=== PATIENT | male | born 1935 | race Asian ===

== ENCOUNTER 2021-08-09 22:37 | Emergency (ER) | payer MEDICARE ==
[~2021-08-09] VITALS: Ht 157.5 cm; Wt 49.9 kg
[2021-08-09 23:01] LABS: BASOPHILS % 0.2 % (0.0-1.0); EOSINOPHILS % 0.2 % (0.0-6.0); LYMPHOCYTES # (AUTO) 0.5 (1.0-3.2); LYMPHOCYTES % 3.8 % (18.0-39.1); MEAN CORPUSCULAR HEMOGLOBIN 22.5 pg (28-32); MEAN CORPUSCULAR HGB CONC 29.5 g/dL (31-35); MEAN CORPUSCULAR VOLUME 76.3 fL (81-99); MONOCYTES # (AUTO) 0.7 (0.2-0.8); MONOCYTES % 5.4 % (4.4-11.3); NEUTROPHILS % 89.3 % (38.7-80.0); PLATELET COUNT 291 x10e3/uL (140-360); RED BLOOD COUNT 2.53 x10e6/uL (4.3-5.7)
[2021-08-09 23:03] LABS: HEMATOCRIT 19.3 % (38.2-49.6); HEMOGLOBIN 5.7 g/dL (14.0-18.0)
[2021-08-09 23:14] LABS: INR 1.04; PROTHROMBIN TIME 14.3 seconds (11.9-14.5)
[2021-08-09 23:15] LABS: PARTIAL THROMBOPLASTIN TIME 36.5 seconds (23.8-35.5)
[2021-08-09 23:20] LABS: ANION GAP 13.2 mmol/L (8-16); CALCIUM 8.2 mg/dL (8.4-10.2); CREATININE, SERUM 1.27 mg/dL (0.72-1.25); POTASSIUM 4.2 mmol/L (3.5-5.1)
[2021-08-09] MEDS ORDERED: SODIUM CHLORIDE 0.9% 250ML 250 ML IV ONE (23:30)
[2021-08-10] MEDS ORDERED: SODIUM CHLORIDE 0.9% 250ML 250 ML ONE (17:13)
== END 2021-08-10 23:53 | disposition home or self-care (01) ==
LOC: ER 22:48
DX: D50.9 Iron deficiency anemia, unspecified (principal); R50.9 Fever, unspecified
CPT/HCPCS: 36415; 80048; 85025; 85610; 85730; 86850; 86870; 86880; 86900; 86905; 86920; 86922; 99001; 99285; J7050; P9016